=== PATIENT | female | born 1995 | race Caucasian/White ===

== ENCOUNTER 2016-05-09 20:50 | Emergency (ER) | payer BC ==
[~2016-05-09] VITALS: Ht 160 cm; Wt 61.2 kg
--- NOTE | 2016-05-09 21:51 | RAD ---
Examination: CT head without contrast. HISTORY History of right-sided headache after hitting head on water slide. COMPARISON None available Findings: None available Findings: There is no evidence of midline shift. Roth-white matter differentiation is maintained. There is no acute intracranial bleed or extra-axial fluid collection identified. The visualized paranasal sinuses, mastoid air cells are clear Impression: No acute intracranial findings. Electronically signed by: Xu Barksdale (May 09, 2016 21:49:50)
[2016-05-09] MEDS ORDERED: IBUP-1007 PO (21:58)
--- NOTE | 2016-05-09 21:58 | PHYS DOC ---
Past Medical History Past Medical History: Other Additional Past Medical Histor: EPILEPSY Past Surgical History: Tonsillectomy Alcohol Use: None Drug Use: None Adult General Chief Complaint Chief Complaint: HEADACHE HPI HPI Patient is a 20 year old female with a history significant for seizure disorder in the past presents here today secondary to a headache. Patient reports that yesterday she was [place] the [employer] and with simple and hit her head against the slide. Patient reports that she had no nausea vomiting, no loss of consciousness. No blurred vision. No weakness or upper or lower extremities. No C-spine T-spine or L-spine tenderness. Patient reports that she had no blurred vision or change in vision. Patient reports secondary headache and her history of seizures her family was concerned that she might have swelling in her brain have asked her to come to the ER for CT. Patient's family lives in [facility] and they're driving on the way up secondary to the concern. Patient denies any other symptomatology. Patient has any fevers shakes chills nausea vomiting diarrhea chest pain short of breath cough cold or rhinorrhea. He is uninsured decision-making the patient is requesting we get a CT scan. She understands the risks of radiation however she feels that her family found her way out and they would be unhappy [facility] does not order the CT scan for head. Patient's physical exam was unremarkable. Patient had a normal funduscopic exam. Cranial nerves to 12 are intact. Patient started was nonfocal. There is no nystagmus. Normal finger to nose. Patient had a CT scan of her head which revealed no pathology. Patient be discharged home in stable condition with ibuprofen assist her with her headache. Review of Systems Review of Systems Constitutional: Denies fever or chills [] Eyes: Denies change in visual acuity, redness, or eye pain [] HENT: Denies nasal congestion or sore throat [] All other review systems are negative except as documented in the history of present illness portion. Current Medications Current Medications Current Medications Medications (Trade) Dose Ordered Sig/Mau Start Time Stop Time Status Last Admin Dose Admin Ketorolac Tromethamine (Toradol Im) 60 mg 1X ONCE 05/09/16 22:00 05/09/16 22:01 05/09/16 21:53 60 MG Allergies Allergies Allergies Coded Allergies Type Severity Reaction Last Updated Verified Penicillins Allergy Intermediate 05/09/16 Yes Physical Exam Physical Exam Constitutional: Well developed, well nourished, no acute distress, non-toxic appearance. [] HENT: Normocephalic, atraumatic, bilateral external ears normal, oropharynx moist, no oral exudates, nose normal. [] Eyes: PERRLA, EOMI, conjunctiva normal, no discharge. [] Neck: Normal range of motion, no tenderness, supple, no stridor. [] Cardiovascular:Heart rate regular rhythm, Lungs & Thorax: Bilateral breath sounds clear to auscultation [] Abdomen: Bowel sounds normal, soft, no tenderness, no masses, no pulsatile masses. [] Skin: Warm, dry, no erythema, no rash. [] Back: No tenderness, no CVA tenderness. [] Extremities: No tenderness, no cyanosis, no clubbing, ROM intact, no edema. [] Neurologic: Alert and oriented X 3, normal motor function, normal sensory function, no focal deficits noted. [] Psychologic: Affect normal, judgement normal, mood normal. [] Current Patient Data Vital Signs Vital Signs Date Time Temp Pulse Resp B/P Pulse Ox O2 Delivery O2 Flow Rate FiO2 05/09/16 21:00 98.5 90 27 109/63 98 Room Air 98.5 Lab Values Laboratory Tests Test 05/09/16 21:20 POC Urine HCG, Qualitative Hcg negative (Negative) EKG EKG [] Radiology/Procedures Radiology/Procedures [] Course & Med Decision Making Course & Med Decision Making Pertinent Labs and Imaging studies reviewed. (See chart for details) [] Dragon Disclaimer Dragon Disclaimer This electronic medical record was generated, in whole or in part, using a voice recognition dictation system. Departure Departure Impression: Primary Impression: Head injury Disposition: HOME, SELF-CARE Condition: IMPROVED Patient Instructions: Head Injury, Adult Scripts Ibuprofen 600 Mg Tdigfs113 Mg PO PRN Q6HRS PRN PAIN #20 TAB Prov:BASILIO HENSLEY MD 05/09/16 BASILIO HENSLEY MD May 09, 2016 21:58
[2016-05-09] MEDS ORDERED: KETOROLAC TROMETHAMINE 60 MG/2 ML SYRINGE. IM ONE (22:00)
[2016-05-09 22:28] VITALS: BP 105/64
== END 2016-05-09 22:28 | disposition home or self-care (01) ==
LOC: ER 20:50
DX: S09.90XA Unspecified injury of head, initial encounter (principal); G40.909 Epilepsy, unspecified, not intractable, without status epilepticus; Z88.0 Allergy status to penicillin; W22.8XXA Striking against or struck by other objects, initial encounter; Y93.89 Activity, other specified; Y92.89 Other specified places as the place of occurrence of the external cause; Y99.8 Other external cause status
CPT/HCPCS: 70450; 81025; 96372; 99284; J1885